=== PATIENT | female | born 1965 | race Caucasian/White ===

== ENCOUNTER 2017-02-28 17:40 | Emergency (ER) | payer BC ==
[2017-02-28] MEDS ORDERED: Aspirin Low Dose CHEW TAB* 81 MG PO ONE (19:57)
--- NOTE | 2017-02-28 20:37 | RAD ---
Indication: Chest pain intermittent for one week. Comparison: June 24, [address] and March 07, 2015 chest radiograph. Technique: Upright AP 2015 hours Report: Large body habitus limits image quality. Clear lungs and pleural spaces. Negative for pneumothorax. The heart, pulmonary vasculature, and mediastinal contours are unremarkable. Unremarkable osseous structures and soft tissue contours. IMPRESSION: No evidence for acute intrathoracic disease.
[2017-02-28 20:38] LABS: Hematocrit 44 % (35-47); Hemoglobin 14.4 g/dl (12.0-16.0); Mean Corpuscular HGB Conc 33 g/dl (31-36); Mean Corpuscular Hemoglobin 28 pg (27-31); Mean Corpuscular Volume 86 fL (80-97); Mean Platelet Volume 9 um3 (7.4-10.4); Red Blood Count 5.09 10^6/ul (4.0-5.4); Red Cell Distribution Width 15 % (10.5-15); White Blood Count 8.3 10^3/ul (3.5-10.8)
[2017-02-28 20:54] LABS: Albumin 5.1 g/dL (3.2-5.2); BUN/Creatinine Ratio 14.7 (8-20); Calcium 10.5 mg/dL (8.6-10.3); EGFR African American 117.3 (>60); EGFR Non-African American 91.2 (>60); Globulin 3.2 g/dL (2-4); Potassium 3.7 mmol/L (3.5-5.0); Total Bilirubin 0.7 mg/dL (0.2-1.0); Total Protein 8.3 g/dL (6.4-8.9)
[2017-03-01 00:31] VITALS: BP 113/66
--- NOTE | 2017-03-03 14:18 | ED ---
Hever Blas Benjamin, scribed for Janes Chandler MD on 02/28/17 at 2119 . HPI Chest Pain - HPI Summary HPI Summary: 51yo female c/o chest tightness for a week. Pt says pain radiates to back, left jaw, and left arm. At first, pt ignored the pain, but pain has been getting worse that pt decided to come in. Pt woke up today with racing heart as well. Pt denies SOB. - History of Current Complaint Chief Complaint: EDChestPainROMI Time Seen by Provider: 02/28/17 19:54 Hx Obtained From: Patient Onset/Duration: Started Weeks Ago - 1 week ago, Still Present Timing: Constant Initial Severity: Mild Current Severity: Mild Pain Intensity: 3 Chest Pain Location: Diffuse Chest Pain Radiates: Yes Chest Pain Radiates To:: Back, Arm - left, Jaw - left Aggravating Factor(s): Nothing Alleviating Factor(s): Nothing Associated Signs and Symptoms: Positive: Negative. Negative: Shortness of Breath - Allergy/Home Medications Allergies/Adverse Reactions: Allergies Allergy/AdvReac Type Severity Reaction Status Date / Time No Known Allergies Allergy Verified 02/28/17 17:41 PMH/Surg Hx/FS Hx/Imm Hx Endocrine/Hematology History: Denies: Hx Anticoagulant Therapy, Hx Diabetes, Hx Thyroid Disease Cardiovascular History: Denies: Hx Hypertension, Hx Pacemaker/ICD Respiratory History: Denies: Hx Asthma, Hx Chronic Obstructive Pulmonary Disease (COPD) GI History: Reports: Hx Gastroesophageal Reflux Disease, Hx Hiatal Hernia, Hx Irritable Bowel - Becomes constipated, Other GI Disorders - diverticulitis, GERD , dyslipidemia, bilat ovarian cysts History: Denies: Hx Renal Disease Sensory History: Reports: Hx Contacts or Glasses, Other Sensory Impairments - Conjuntival Edema in Right eye Denies: Hx Hearing Aid Opthamlomology History: Reports: Hx Contacts or Glasses, Other Sensory Impairments - Conjuntival Edema in Right eye Neurological History: Reports: Other Neuro Impairments/Disorders - Vertigo Denies: Hx Dementia, Hx Seizures Psychiatric History: Denies: Hx Panic Disorder, Hx Substance Abuse - Surgical History Surgery Procedure, Year, and Place: tonsillectomy, partial hysterectomy 2003 Infectious Disease History: No Infectious Disease History: Denies: Hx Hepatitis, Hx Human Immunodeficiency Virus (HIV), Traveled Outside the [place] in Last 30 Days - Family History Known Family History: Positive: Diabetes Negative: Cardiac Disease, Hypertension - Social History Occupation: Employed Full-time Lives: With Family Alcohol Use: Occasionally Substance Use Type: Reports: None Smoking Status (MU): Never Smoked Tobacco Review of Systems Constitutional: Negative Eyes: Negative ENT: Negative Positive: Chest Pain - radiates to back, left jaw, and left arm Respiratory: Negative Gastrointestinal: Negative Genitourinary: Negative Musculoskeletal: Negative Skin: Negative Neurological: Negative Psychological: Normal All Other Systems Reviewed And Are Negative: Yes Physical Exam Triage Information Reviewed: Yes Vital Signs On Initial Exam: Initial Vitals Temp Pulse Resp BP Pulse Ox 98.1 F 96 18 140/82 100 02/28/17 17:41 02/28/17 17:41 02/28/17 17:41 02/28/17 17:41 02/28/17 17:41 Vital Signs Reviewed: Yes Appearance: Positive: Well-Appearing, No Pain Distress, Well-Nourished Skin: Positive: Warm, Skin Color Reflects Adequate Perfusion, Dry Head/Face: Positive: Normal Head/Face Inspection Eyes: Positive: Normal ENT: Positive: Normal ENT inspection Neck: Positive: Supple, Nontender Cardiovascular: Positive: RRR Abdomen Description: Positive: Nontender, Soft Bowel Sounds: Positive: Present Musculoskeletal: Positive: Normal, Strength/ROM Intact Neurological: Positive: Normal, Sensory/Motor Intact, Alert, Oriented to Person Place, Time, CN Intact II-III Psychiatric: Positive: Affect/Mood Appropriate - Katie Coma Scale Coma Scale Total: 15 Diagnostics - Vital Signs Vital Signs Temp Pulse Resp BP Pulse Ox 02/28/17 19:48 100 14 97 02/28/17 19:47 100 02/28/17 19:46 135/80 02/28/17 17:41 98.1 F 96 18 140/82 100 - Laboratory Lab Results: Lab Results 02/28/17 02/28/17 02/28/17 Range/Units 20:23 20:23 20:23 WBC 8.3 (3.5-10.8) 10^3/ul RBC 5.09 (4.0-5.4) 10^6/ul Hgb 14.4 (12.0-16.0) g/dl Hct 44 (35-47) % MCV 86 (80-97) fL MCH 28 (27-31) pg MCHC 33 (31-36) g/dl RDW 15 (10.5-15) % Plt Count 215 (150-450) 10^3/ul MPV 9 (7.4-10.4) um3 Neut % (Auto) 73.9 (38-83) % Lymph % (Auto) 18.7 L (25-47) % Kane % (Auto) 6.5 (1-9) % Eos % (Auto) 0.1 (0-6) % Baso % (Auto) 0.8 (0-2) % Absolute Neuts (auto) 6.1 (1.5-7.7) 10^3/ul Absolute Lymphs (auto) 1.5 (1.0-4.8) 10^3/ul Absolute Monos (auto) 0.5 (0-0.8) 10^3/ul Absolute Eos (auto) 0 (0-0.6) 10^3/ul Absolute Basos (auto) 0.1 (0-0.2) 10^3/ul Absolute Nucleated RBC 0 10^3/ul Nucleated RBC % 0 Sodium 139 (133-145) mmol/L Potassium 3.7 (3.5-5.0) mmol/L Chloride 102 (101-111) mmol/L Carbon Dioxide 27 (22-32) mmol/L Anion Gap 10 (2-11) mmol/L BUN 10 (6-24) mg/dL Creatinine 0.68 (0.51-0.95) mg/dL Est GFR ( Amer) 117.3 (>60) Est GFR (Non-Af Amer) 91.2 (>60) BUN/Creatinine Ratio 14.7 (8-20) Glucose 87 (70-100) mg/dL Lactic Acid 0.9 (0.5-2.0) mmol/L Calcium 10.5 H (8.6-10.3) mg/dL Total Bilirubin 0.70 (0.2-1.0) mg/dL AST 26 (13-39) U/L ALT 27 (7-52) U/L Alkaline Phosphatase 62 (34-104) U/L Troponin I 0.00 (<0.04) ng/mL Total Protein 8.3 (6.4-8.9) g/dL Albumin 5.1 (3.2-5.2) g/dL Globulin 3.2 (2-4) g/dL Albumin/Globulin Ratio 1.6 (1-3) Result Diagrams: 02/28/17 20:23 02/28/17 20:23 Lab Statement: Any lab studies that have been ordered have been reviewed, and results considered in the medical decision making process. - Radiology CXR Xray Interpretation: No Acute Changes Radiology Interpretation Completed By: Radiologist - EKG 1750. Cardiac Rate: NL - 94bpm EKG Rhythm: Sinus Rhythm ST Segment: Normal Chest Pain Course/Dx - Course Course Of Treatment: Tomasa Griffith presented with an atypical chest pain and is being R/O with the first trop negative. - Diagnoses Provider Diagnoses: Chest pain - Provider Notifications Discussed Care Of Patient With: Dr. Asif at change of shift. Discharge - Discharge Plan Condition: Stable Disposition: HOME Patient Education Materials: Chest Pain (ED) Referrals: Emely Paz NP [Primary Care Provider] - The documentation as recorded by the Hever nichole Benjamin accurately reflects the service I personally performed and the decisions made by , Janes Chandler MD.
== END 2017-03-01 00:31 | disposition home or self-care (01) ==
LOC: ED 17:40
DX: R07.9 Chest pain, unspecified (principal); R68.84 Jaw pain; M79.603 Pain in arm, unspecified
CPT/HCPCS: 36415; 71010; 80053; 83605; 84484; 85025; 93005; 99283; A9270-GY

== ENCOUNTER 2017-04-28 18:23 | Emergency (ER) | payer BC ==
--- NOTE | 2017-04-28 20:11 | RAD ---
INDICATION: Chest pain COMPARISON: February 28, 2017 TECHNIQUE: PA and lateral dual-energy views were obtained. FINDINGS: Bones/Soft Tissues: There are no acute bony findings. Cardiomediastinal: The cardiomediastinal silhouette is normal. Lungs: There are no infiltrates. Pleura: There are no pleural effusions. Other: None IMPRESSION: NO ACTIVE DISEASE.
--- NOTE | 2017-04-28 20:30 | RAD ---
INDICATION: Cholelithiasis COMPARISON: March 07, 2015 TECHNIQUE: Longitudinal and transverse scans of the right upper quadrant were obtained. Doppler interrogation of the hepatic and portal venous system was performed. FINDINGS: Liver: The liver is normal in size and echogenicity. There are no focal masses. The liver measures 14.9 cm in cephalocaudal dimension. Vessels: There is normal hepatic and portal venous flow. Bile ducts: There is no evidence of intrahepatic or extrahepatic ductal dilatation. The common duct measures 0.3 cm. Gallbladder: The gallbladder wall appears echogenic and mildly prominent likely related to cholesterolosis. There are no calcified gallstones. There is no pericholecystic fluid.. Pancreas: The visualized pancreas appears normal Right kidney: The right kidney is normal in size and echogenicity. There are no masses or calculi. There is no evidence of hydronephrosis. The right kidney measures 10.0 x 4.8 x 5.3 cm. IVC and aorta: The aorta and superior vena cava appear normal. Fluid: There is no ascites. Other: None. IMPRESSION: PROBABLE CHOLESTEROLOSIS THE GALLBLADDER, OTHERWISE NEGATIVE. NO INTERVAL CHANGES.
[2017-04-28 20:32] LABS: Hematocrit 42 % (35-47); Hemoglobin 13.6 g/dl (12.0-16.0); Mean Corpuscular HGB Conc 33 g/dl (31-36); Mean Corpuscular Hemoglobin 28 pg (27-31); Mean Corpuscular Volume 87 fL (80-97); Mean Platelet Volume 10 um3 (7.4-10.4); Red Blood Count 4.78 10^6/ul (4.0-5.4); Red Cell Distribution Width 14 % (10.5-15); White Blood Count 10.2 10^3/ul (3.5-10.8)
[2017-04-28 20:48] LABS: Albumin 4.7 g/dL (3.2-5.2); BUN/Creatinine Ratio 17.8 (8-20); Calcium 10.1 mg/dL (8.6-10.3); EGFR African American 84.9 (>60); Globulin 2.8 g/dL (2-4); Magnesium 2.2 mg/dL (1.9-2.7); Potassium 3.7 mmol/L (3.5-5.0); Total Bilirubin 0.6 mg/dL (0.2-1.0); Total Protein 7.5 g/dL (6.4-8.9)
[2017-04-28 22:14] LABS: Urine Bilirubin Negative (Negative); Urine Glucose Negative (Negative); Urine Nitrite Negative (Negative)
--- NOTE | 2017-04-28 23:51 | ED ---
Maira Blas Rebecca, scribed for Ketan Dye on 04/28/17 at 1916 . HPI Chest Pain - HPI Summary HPI Summary: Pt is a 51 y/o F who presents to ED c/o lower sternal chest pain. Pain began suddenly at 1600 and has been intermittent since onset, currently not present. Pain previously was severe, ranked 10/10, though it is now completely gone. Pain characterized as pressure and spasms, and she initially believed it to be indigestion. Located in the lower sternum with radiation to the back and epigastric regions. Sx aggravated by sitting, alleviated by walking, unchanged by Gas-X. Additionally c/o nausea. Denies V/D. PMHx pancreatitis during which she had similar symptoms. PMHx diverticulitis, hiatal hernia and cholesterolosis of the gallbladder. No PSHx cholecystectomy. No PMHx ulcers. Had an endoscope in July and a colonoscopy in November. Has never had a stress test. Reports she was evaluated February 28 for chest pain with radiation to the back, jaw and shoulder which revealed no acute pathology and she was D/ C. - History of Current Complaint Chief Complaint: EDChestPainROMI Time Seen by Provider: 04/28/17 19:16 Hx Obtained From: Patient Onset/Duration: Started Hours Ago, Resolved Time of Onset: 16:00 Timing: Constant, Intermittent Initial Severity: Severe - 10/10 Current Severity: None Pain Intensity: 0 Pain Scale Used: 0-10 Numeric Chest Pain Location: Lower Sternal Chest Pain Radiates: Yes Chest Pain Radiates To:: Back, Epigastric Character: Pressure/Squeezing, Other: - Spasms, indigestion Aggravating Factor(s): Other: - Sitting Alleviating Factor(s): Other: - Walking Associated Signs and Symptoms: Positive: Nausea, Other: - Denies diarrhea. Negative: Vomiting Related History: Similar Episode/Dx as: - Dx of Pancreatitis - Allergy/Home Medications Allergies/Adverse Reactions: Allergies Allergy/AdvReac Type Severity Reaction Status Date / Time No Known Allergies Allergy Verified 02/28/17 17:41 PMH/Surg Hx/FS Hx/Imm Hx Endocrine/Hematology History: Denies: Hx Anticoagulant Therapy, Hx Diabetes, Hx Thyroid Disease Cardiovascular History: Denies: Hx Hypertension, Hx Pacemaker/ICD Respiratory History: Denies: Hx Asthma, Hx Chronic Obstructive Pulmonary Disease (COPD) GI History: Reports: Hx Gastroesophageal Reflux Disease, Hx Hiatal Hernia, Hx Irritable Bowel - Becomes constipated, Other GI Disorders - diverticulitis, dyslipidemia, bilat ovarian cysts, cholesterolosis Denies: Hx Ulcer History: Denies: Hx Renal Disease Sensory History: Reports: Hx Contacts or Glasses, Other Sensory Impairments - Conjuntival Edema in Right eye Denies: Hx Hearing Aid Opthamlomology History: Reports: Hx Contacts or Glasses, Other Sensory Impairments - Conjuntival Edema in Right eye Neurological History: Reports: Other Neuro Impairments/Disorders - Vertigo Denies: Hx Dementia, Hx Seizures Psychiatric History: Denies: Hx Panic Disorder, Hx Substance Abuse - Surgical History Surgery Procedure, Year, and Place: tonsillectomy, partial hysterectomy 2003 Infectious Disease History: No Infectious Disease History: Denies: Hx Hepatitis, Hx Human Immunodeficiency Virus (HIV), Traveled Outside the [place] in Last 30 Days - Family History Known Family History: Positive: Diabetes Negative: Cardiac Disease, Hypertension - Social History Alcohol Use: Occasionally Substance Use Type: Reports: None Smoking Status (MU): Never Smoked Tobacco Review of Systems Positive: Chest Pain - lower sternal with radiation to the back and epigastric regions, resolved Positive: Nausea. Negative: Vomiting, Diarrhea All Other Systems Reviewed And Are Negative: Yes Physical Exam - Summary Physical Exam Summary: Appearance: Well appearing, no pain distress Skin: warm, dry, reflects adequate perfusion Head/face: normal Eyes: EOMI, DARIEL ENT: normal Neck: supple, nontender Resp: CTA, breath sounds present Cardio: RRR, pulses symm Abd: nontender, soft Bowel: present Musc: normal, strength/ROM intact Neuro: normal, sensory motor intact, A&Ox3 Triage Information Reviewed: Yes Vital Signs On Initial Exam: Initial Vitals Temp Pulse Resp BP Pulse Ox 97.4 F 102 20 122/51 100 04/28/17 18:26 04/28/17 18:26 04/28/17 18:26 04/28/17 18:26 04/28/17 18:26 Vital Signs Reviewed: Yes - [place] Coma Scale Coma Scale Total: 15 Diagnostics - Vital Signs Vital Signs Temp Pulse Resp BP Pulse Ox 04/28/17 19:02 65 102/52 97 04/28/17 19:01 65 97 04/28/17 18:30 97.4 F 82 20 122/51 100 04/28/17 18:26 97.4 F 102 20 122/51 100 - Laboratory Result Diagrams: 04/28/17 20:20 04/28/17 20:20 Lab Statement: Any lab studies that have been ordered have been reviewed, and results considered in the medical decision making process. - Radiology CXR Xray Interpretation: No Acute Changes - NO ACTIVE DISEASE Radiology Interpretation Completed By: Radiologist - Ultrasound No standard instances Ultrasound Interpretation Completed By: Radiologist - Gallbladder US: PROBABLE CHOLESTEROLOSIS THE GALLBLADDER, OTHERWISE NEGATIVE. NO INTERVAL CHANGES. - EKG 1848 Cardiac Rate: NL - 66 bpm EKG Rhythm: Sinus Rhythm EKG Interpretation: No acute changes Re-Evaluation - Re-Evaluation First Eval Re-Evaluation Time: 21:16 Change: Improved Comment: Pt is in no pain at the moment, expressed that she would like to be D/ C. Explained that after the repeat Troponin is done, if it is negative she can be D/C to home and have a stress test as an outpatient. Chest Pain Course/Dx - Course Assessment/Plan: Pt is a 51 y/o F who presents to ED c/o abdominal pain, epigastric pain and chest pain. EKG and CXR reveal no acute findings. Gallbladder US reveals likely cholesterolosis of the gallbladder. No gall stones. Both Troponins are 0.00. Pt is not currently experiencing any pain and would not like ot be admitted, expressing a desire to follow up as an outpatient. Pt advised to follow up with her PCP and human resource consultant. Pt is already on Protonix and was advised to continue. She will be D/C to home with Dx of nonspecific abdominal pain and atypical CP. - Diagnoses Provider Diagnoses: Nonspecific abdominal pain, Atypical chest pain Discharge - Discharge Plan Condition: Stable Disposition: HOME Patient Education Materials: Abdominal Pain (ED), Chest Pain (ED) Referrals: Emely Paz NP [Primary Care Provider] - 3 Days Arleen Mai MD [Medical Doctor] - 3 Days The documentation as recorded by the Maira nichole Rebecca accurately reflects the service I personally performed and the decisions made by , Ketan Dye.
[2017-04-29 00:13] VITALS: BP 107/64
== END 2017-04-29 00:07 | disposition home or self-care (01) ==
LOC: ED 18:23
DX: R10.9 Unspecified abdominal pain (principal); R07.89 Other chest pain; R19.7 Diarrhea, unspecified
CPT/HCPCS: 36415; 71020; 76705; 80053; 81003; 83690; 83735; 84484; 84702; 85025; 85730; 93005; 99283